=== PATIENT | female | born 1995 | race American Indian/Alaskan Native ===

== ENCOUNTER 2017-12-05 14:36 | Inpatient (IN) | payer BC, MEDICAID ==
[2017-12-05] MEDS ORDERED: ZOFRAN IV PRN (16:17)
[2017-12-05] MEDS ORDERED: ePHEDrine SULFATE IV PRN ×2 (16:17→18:47)
[2017-12-05] MEDS ORDERED: SUBLIMAZE IV PRN (16:17)
[2017-12-05] MEDS ORDERED: MINERAL OIL PO PRN (16:17)
[2017-12-05] MEDS ORDERED: XYLOCAINE 2% INFILTRATI ONE (16:17)
[2017-12-05] MEDS ORDERED: BRETHINE SUB-Q PRN (16:17)
[2017-12-05 16:56] LABS: Hematocrit 31.1 % (30.3-42.9); Mean Corpuscular HGB Conc 35 % (30-34); Mean Corpuscular Hemoglobin 26 pg (28-32); Mean Corpuscular Volume 72 fl (79-97); Platelet Count 237 K/mm3 (140-440); Red Cell Distribution Width 16.4 % (13.2-15.2)
[2017-12-05] MEDS ORDERED: PITOCin/NS 30 UNIT/500ML 30 UNITS/500 ML BAG IV SCH (17:00)
[2017-12-05] MEDS ORDERED: PITOCin/NS 20 UNIT/1000ML DRIP 20 UNITS/1,000 ML BAG IV SCH (17:00)
[2017-12-05] MEDS: LACTATED RINGERS 1,000 ML IV SCH ×2 (17:15→19:18)
--- NOTE | 2017-12-05 17:21 | History and Physical Report ---
History of Present Illness Date of examination: 12/05/17 (pt presented to Triage with c/o ctx) History of present illness: EDC Confirmation: 12/19/2017 Gestational Age: 12 weeks Past History : 2 Para: 1 Past Medical History: Reviewed history from 11/03/2015 and no changes required: Negative Past Medical History Past Surgical History: Reviewed history from 11/03/2015 and no changes required: negative Past Medical History Anesthesia Complications: negative Anemia: negative Autoimmune Disorder: negative Bleeding Disorder: negative Blood Transfusions: negative Breast Disease: negative Diabetes: negative Heart Disease: negative Hypertension: negative Hepatitis/Liver Disease: negative Kidney Disease/UTI: negative Neurologic/Epilepsy/Migraines: negative Phlebitis/Varicosities: negative Psychiatric: negative Pulmonary Disease/Asthma: negative Thyroid Disease: negative Hospitalizations: negative Surgery (Non-medicaid specialist): negative Abnormal PAP: negative AVELINO Exposure: negative Infertility: negative Uterine Anomaly: negative Uterine Surgery (not C/S): negative Other Gynecologic Problems: negative Family Hx: father - DM 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 of genital herpes: no Partner hx. of genital herpes: no Rash, Viral, or Febrile illness since last LMP? no Varicella/Chicken Pox Status: Immunized Genetic History Congenital Heart Defect: Mom: no Dad: no Meera Disease: Mom: no Dad: no Thalassemia Mom: no Dad: no Neural Tube Defect Mom: yes Dad: no Comments: uncle Down's Syndrome Mom: no Dad: no Buddy-Sachs Mom: no Dad: no Sickle Cell Disease/Trait Mom: no Dad: no Hemophilia Mom: no Dad: no Muscular Dystrophy Mom: no Dad: no Cystic Fibrosis Mom: no Dad: no [place] Chorea Mom: no Dad: no Mental Retardation Mom: no Dad: no Fragile X Mom: no Dad: no Other Genetic/Chromosomal Disorder Mom: no Dad: no Child w/other defect Mom: no Dad: no Enviromental Exposures Xray Exposure: no Medication, drug, or alcohol use since LMP: no Chemical/Other Exposure: no Exposure to Cat Liter: no Hx of Parvovirus (Fifth Disease): no Occupational Exposure to Children: none Active Medications (reviewed today): MICRONOR () one po qd VITAMINS () Current Allergies (reviewed today): No known allergies Laboratory Results Routine Urinalysis Leukocytes: negative Nitrite: negative Urobilinogen: negative Protein: negative Blood: negative Ketone: negative Bilirubin: negative Glucose: negative Urine HCG: positive Review of Systems General Denies fever, chills, sweats, anorexia, fatigue, weakness, malaise, weight loss and sleep disorder. Denies nausea, vomiting, headache, swelling of legs, abdominal pain, vaginal discharge, vaginal bleeding and contractions. Denies vaginal discharge, incontinence, dysuria, hematuria, urinary frequency, amenorrhea, menorrhagia, abnormal vaginal bleeding, pelvic pain, genital sores, decreased libido, painful periods, painful sex, urinary urgency, hot flashes, vaginal dryness, vaginal itching and vaginal odor. CV Denies chest pains, palpitations, syncope, dyspnea on exertion, orthopnea, PND and peripheral edema. Resp Denies cough, dyspnea at rest, excessive sputum, hemoptysis, wheezing and pleurisy. GI Denies nausea, vomiting, diarrhea, constipation, change in bowel habits, abdominal pain, melena, hematochezia, jaundice, gas/bloating, indigestion/ heartburn, dysphagia and odynophagia. Endo Denies cold intolerance, heat intolerance, polydipsia, polyphagia, polyuria and unusual weight change. Breast Denies left breast lump, right breast lump, nipple discharge, bloody discharge from nipple, breast pain, abnormal mammogram and breast enlargement. MS Denies back pain, joint pain, joint swelling, muscle cramps, muscle weakness, stiffness, arthritis, sciatica, restless legs, leg pain at night and leg pain with exertion. Derm Denies rash, itching, dryness and suspicious lesions. Neuro Denies paralysis, paresthesias, headache, seizures, tremors, vertigo, transient blindness, frequent falls, frequent headaches and difficulty walking. Psych Denies depression, anxiety, irritability and mood swings. Eyes Denies blurring, diplopia, irritation, discharge, vision loss, eye pain and photophobia. ENT Denies earache, ear discharge, tinnitus, decreased hearing, nasal congestion, nosebleeds, sore throat and hoarseness. Allergy Denies urticaria, allergic rash, hay fever and recurrent infections. Heme Denies abnormal bruising, bleeding and enlarged lymph nodes. 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 Vulva/Vagina: No lesions, normal BUS, normal rugae Cervix: No lesions; no cervical motion tenderness Uterus: normal size and position, midline, mobile Fundal Ht: 12 size: AGA FHT: 150s Adnexae: no masses or tenderness Rectovaginal: no masses or tenderness Past History - Obstetrical History Expected Date of Delivery: 12/19/17 Actual Gestation: 38 Week(s) 0 Day(s) : 2 Para: 1 Hx # Term Pregnancies: 1 Number of Living Children: 1 Medications and Allergies Allergies Allergy/AdvReac Type Severity Reaction Status Date / Time No Known Allergies Allergy Unverified 03/14/16 02:39 Home Medications Medication Instructions Recorded Confirmed Last Taken Type Lidocain2.5%/Prilocai2.5% [Emla] 5 gm TP PRN #1 tube 03/15/16 Unknown Rx Active Meds: Active Medications Ephedrine Sulfate (Ephedrine Sulfate) 10 mg IV Q2M PRN PRN Reason: Hypotension Fentanyl (Sublimaze) 100 mcg IV Q2H PRN PRN Reason: Labor Pain Lactated Ringer's (Lactated Ringers) 1,000 mls @ 125 mls/hr IV DIRECT KARINA Oxytocin/Sodium Chloride (Pitocin/Ns 20 Unit/1000ml Drip) 20 units in 1,000 mls @ 125 mls/hr IV DIRECT KARINA Oxytocin/Sodium Chloride (Pitocin/Ns 30 Unit/500ml) 30 units in 500 mls @ 4 mls /hr IV Q30MIN KARINA; Protocol Mineral Oil (Mineral Oil) 30 ml PO QHS PRN PRN Reason: Constipation Ondansetron HCl (Zofran) 4 mg IV Q8H PRN PRN Reason: Nausea And Vomiting Terbutaline Sulfate (Brethine) 0.25 mg SUB-Q ONCE PRN PRN Reason: Hyperstimulation/Hypertonicity - Vital Signs Vital signs: Vital Signs Pulse BP 82 113/74 12/05/17 15:22 12/05/17 15:22 Temp Pulse Resp BP Pulse Ox 98.5 F 82 18 113/74 12/05/17 15:38 12/05/17 15:22 12/05/17 15:38 12/05/17 15:22 - Physical Exam Breasts: Positive: deferred Cardiovascular: Regular rate, Normal S1, Normal S2 Lungs: Positive: Clear to auscultation, Normal air movement Abdomen: Positive: normal appearance, soft, normal bowel sounds. Negative: distention, tenderness Genitourinary (Female): Positive: normal external genitalia, normal perenium Vulva: both: normal Vagina: Positive: normal moisture. Negative: discharge Cervix: Negative: lesion, discharge Uterus: Positive: normal size, normal contour Adnexa: both: normal Anus/Rectum: Positive: normal perianal skin, heme negative. Negative: rectal mass, hemorrhoids Extremities: Positive: normal Deep Tendon Reflex Grade: Normal +2 - Obstetrical FHR: category 1 Uterine Contraction Monitor Mode: External Cervical Dilatation: 4 Cervical Effacement Percentage: 70 station: -2 Uterine Contraction Pattern: Regular Uterine Tone Measurement Phase: Resting Uterine Contraction Intensity: Mild Results Result Diagrams: 12/05/17 16:40 Abnormal lab results 12/05/17 Range/Units 16:40 MCV 72 L (79-97) fl MCH 26 L (28-32) pg MCHC 35 H (30-34) % RDW 16.4 H (13.2-15.2) % All other labs normal. HBsAg Screen Negative Negative *1 Rubella Antibodies, IgG 1.39 index Immune >0.99 *2 Non-immune <0.90 Equivocal 0.90 - 0.99 Immune >0.99 ABO Grouping A *3 Rh Factor Positive *4 Please note: Prior records for this patient's ABO / Rh type are not available for additional verification. Antibody Screen Negative Negative *5 RPR Non Reactive Non Reactive *6 WBC 7.1 x10E3/uL 3.4-10.8 *7 RBC 4.11 x10E6/uL 3.77-5.28 *8 Hemoglobin 11.2 g/dL 11.1-15.9 *9 Hematocrit [L] 32.6 % 34.0-46.6 *10 MCV 79 fL 79-97 *11 MCH 27.3 pg 26.6-33.0 *12 MCHC 34.4 g/dL 31.5-35.7 *13 RDW [H] 15.6 % 12.3-15.4 *14 Platelets 323 x10E3/uL 150-379 *15 Neutrophils 69 % Not Estab. *16 Lymphs 23 % Not Estab. *17 Monocytes 6 % Not Estab. *18 Eos 2 % Not Estab. *19 Basos 0 % Not Estab. *20 ! Immature Cells <No Reported Value> *21 Neutrophils (Absolute) 4.9 x10E3/uL 1.4-7.0 *22 Lymphs (Absolute) 1.6 x10E3/uL 0.7-3.1 *23 Monocytes(Absolute) 0.4 x10E3/uL 0.1-0.9 *24 Eos (Absolute) 0.2 x10E3/uL 0.0-0.4 *25 Baso (Absolute) 0.0 x10E3/uL 0.0-0.2 *26 ! Immature Granulocytes 0 % Not Estab. *27 ! Immature Grans (Abs) 0.0 x10E3/uL 0.0-0.1 *28 ! NRBC <No Reported Value> *29 Hematology Comments: <No Reported Value> *30 Tests: (2) HB Solu + Rflx [facility] ([id number]) Hemoglobin (Hgb) Solubility Negative Negative *31 Tests: (3) Panel [id number] ([id number]) HIV Screen 4th Generation wRfx Non Reactive Non Reactive *32 Tests: (4) HCV Ab w/Rflx to Verification ([id number]) ! HCV Ab <0.1 s/co ratio 0.0-0.9 *33 Tests: (5) Comment: ([id number]) ! Comment: [facility] *34 Non reactive HCV antibody screen is consistent with no HCV infection, unless recent infection is suspected or other evidence exists to indicate HCV infection. Tests: (6) Urine Culture, Routine ([id number]) Urine Culture, Routine Final report *35 Tests: (7) Result ([id number]) ! Result 1 No growth *36 Assessment and Plan 22yo @ 38 weeks active labor GBS negative Orders in EMR
[2017-12-05] MEDS ORDERED: NARCAN 2 MG/2 ML IV PRN (18:47)
[2017-12-05] MEDS ORDERED: fentaNYL-BUPIV 2 MCG/ML-0.125% 200 MCG/100 ML BAG EPIDURAL SCH (20:00)
--- NOTE | 2017-12-05 20:06 | Progress Note ---
Assessment and Plan Copious amt of amniotic fluid with ROM clear SVE 6,100,0 Pit @ 12mu Freq position chges Re-eval as needed. Subjective - Subjective Date of service: 12/05/17 (comfortable with epidural ) Interval history: EDC Confirmation: 12/19/2017 Gestational Age: 12 weeks Past History : 2 Para: 1 Past Medical History: Reviewed history from 11/03/2015 and no changes required: Negative Past Medical History Past Surgical History: Reviewed history from 11/03/2015 and no changes required: negative Past Medical History Anesthesia Complications: negative Anemia: negative Autoimmune Disorder: negative Bleeding Disorder: negative Blood Transfusions: negative Breast Disease: negative Diabetes: negative Heart Disease: negative Hypertension: negative Hepatitis/Liver Disease: negative Kidney Disease/UTI: negative Neurologic/Epilepsy/Migraines: negative Phlebitis/Varicosities: negative Psychiatric: negative Pulmonary Disease/Asthma: negative Thyroid Disease: negative Hospitalizations: negative 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 of genital herpes: no Partner hx. of genital herpes: no Rash, Viral, or Febrile illness since last LMP? no Varicella/Chicken Pox Status: Immunized Genetic History Congenital Heart Defect: Mom: no Dad: no Meera Disease: Mom: no Dad: no Thalassemia Mom: no Dad: no Neural Tube Defect Mom: yes Dad: no Comments: uncle Down's Syndrome Mom: no Dad: no Buddy-Sachs Mom: no Dad: no Sickle Cell Disease/Trait Mom: no Dad: no Hemophilia Mom: no Dad: no Muscular Dystrophy Mom: no Dad: no Cystic Fibrosis Mom: no Dad: no [place] Chorea Mom: no Dad: no Mental Retardation Mom: no Dad: no Fragile X Mom: no Dad: no Other Genetic/Chromosomal Disorder Mom: no Dad: no Child w/other defect Mom: no Dad: no Enviromental Exposures Xray Exposure: no Medication, drug, or alcohol use since LMP: no Chemical/Other Exposure: no Exposure to Cat Liter: no Hx of Parvovirus (Fifth Disease): no Occupational Exposure to Children: none Active Medications (reviewed today): MICRONOR () one po qd VITAMINS () Current Allergies (reviewed today): No known allergies Laboratory Results Routine Urinalysis Leukocytes: negative Nitrite: negative Urobilinogen: negative Protein: negative Blood: negative Ketone: negative Bilirubin: negative Glucose: negative Urine HCG: positive Review of Systems General Denies fever, chills, sweats, anorexia, fatigue, weakness, malaise, weight loss and sleep disorder. Denies nausea, vomiting, headache, swelling of legs, abdominal pain, vaginal discharge, vaginal bleeding and contractions. Denies vaginal discharge, incontinence, dysuria, hematuria, urinary frequency, amenorrhea, menorrhagia, abnormal vaginal bleeding, pelvic pain, genital sores, decreased libido, painful periods, painful sex, urinary urgency, hot flashes, vaginal dryness, vaginal itching and vaginal odor. CV Denies chest pains, palpitations, syncope, dyspnea on exertion, orthopnea, PND and peripheral edema. Resp Denies cough, dyspnea at rest, excessive sputum, hemoptysis, wheezing and pleurisy. GI Denies nausea, vomiting, diarrhea, constipation, change in bowel habits, abdominal pain, melena, hematochezia, jaundice, gas/bloating, indigestion/ heartburn, dysphagia and odynophagia. Endo Denies cold intolerance, heat intolerance, polydipsia, polyphagia, polyuria and unusual weight change. Breast Denies left breast lump, right breast lump, nipple discharge, bloody discharge from nipple, breast pain, abnormal mammogram and breast enlargement. MS Denies back pain, joint pain, joint swelling, muscle cramps, muscle weakness, stiffness, arthritis, sciatica, restless legs, leg pain at night and leg pain with exertion. Derm Denies rash, itching, dryness and suspicious lesions. Neuro Denies paralysis, paresthesias, headache, seizures, tremors, vertigo, transient blindness, frequent falls, frequent headaches and difficulty walking. Psych Denies depression, anxiety, irritability and mood swings. Eyes Denies blurring, diplopia, irritation, discharge, vision loss, eye pain and photophobia. ENT Denies earache, ear discharge, tinnitus, decreased hearing, nasal congestion, nosebleeds, sore throat and hoarseness. Allergy Denies urticaria, allergic rash, hay fever and recurrent infections. Heme Denies abnormal bruising, bleeding and enlarged lymph nodes. 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/Vagina: No lesions, normal BUS, normal rugae Cervix: No lesions; no cervical motion tenderness Uterus: normal size and position, midline, mobile Fundal Ht: 12 size: AGA FHT: 150s Adnexae: no masses or tenderness Rectovaginal: no masses or tenderness Patient reports: movement normal Objective - Vital Signs Vital Signs: Vital Signs - 12hr 12/05/17 12/05/17 12/05/17 15:22 15:38 17:21 Temperature 98.5 F 98.1 F Pulse Rate 82 85 Respiratory 18 16 Rate Blood Pressure 113/74 Blood Pressure 113/75 [Right] O2 Sat by Pulse 100 Oximetry 12/05/17 12/05/17 12/05/17 17:38 17:40 17:45 Temperature Pulse Rate 81 80 82 Respiratory Rate Blood Pressure 113/75 Blood Pressure [Right] O2 Sat by Pulse 100 100 Oximetry 12/05/17 12/05/17 12/05/17 17:50 17:55 17:57 Temperature Pulse Rate 82 85 84 Respiratory Rate Blood Pressure Blood Pressure [Right] O2 Sat by Pulse 100 100 92 Oximetry 12/05/17 12/05/17 12/05/17 18:02 18:07 18:12 Temperature Pulse Rate 103 H 90 88 Respiratory Rate Blood Pressure Blood Pressure [Right] O2 Sat by Pulse 88 100 100 Oximetry 12/05/17 12/05/17 12/05/17 18:17 18:22 18:27 Temperature Pulse Rate 79 79 90 Respiratory Rate Blood Pressure Blood Pressure [Right] O2 Sat by Pulse 100 100 95 Oximetry 12/05/17 12/05/17 12/05/17 18:32 18:37 18:45 Temperature Pulse Rate 75 79 25 L Respiratory Rate Blood Pressure Blood Pressure [Right] O2 Sat by Pulse 100 100 87 Oximetry 12/05/17 12/05/17 12/05/17 18:46 18:51 18:56 Temperature Pulse Rate 47 L 78 83 Respiratory Rate Blood Pressure Blood Pressure [Right] O2 Sat by Pulse 62 L 100 100 Oximetry 12/05/17 12/05/17 12/05/17 19:01 19:06 19:11 Temperature Pulse Rate 86 84 103 H Respiratory Rate Blood Pressure Blood Pressure [Right] O2 Sat by Pulse 100 100 100 Oximetry 12/05/17 12/05/17 12/05/17 19:17 19:20 19:22 Temperature Pulse Rate 103 H 105 H 97 H Respiratory Rate Blood Pressure 119/73 110/76 Blood Pressure [Right] O2 Sat by Pulse 100 100 Oximetry 12/05/17 12/05/17 12/05/17 19:24 19:28 19:30 Temperature Pulse Rate 98 H 96 H 92 H Respiratory Rate Blood Pressure 112/74 108/61 106/54 Blood Pressure [Right] O2 Sat by Pulse Oximetry 12/05/17 12/05/17 12/05/17 19:32 19:34 19:36 Temperature Pulse Rate 109 H 101 H 85 Respiratory Rate Blood Pressure 112/65 110/68 108/60 Blood Pressure [Right] O2 Sat by Pulse 100 Oximetry 12/05/17 12/05/17 12/05/17 19:37 19:38 19:40 Temperature Pulse Rate 82 83 64 Respiratory Rate Blood Pressure 110/64 107/64 Blood Pressure [Right] O2 Sat by Pulse 99 Oximetry 12/05/17 12/05/17 12/05/17 19:42 19:44 19:46 Temperature Pulse Rate 82 86 88 Respiratory Rate Blood Pressure 105/65 114/72 114/70 Blood Pressure [Right] O2 Sat by Pulse 100 Oximetry 12/05/17 12/05/17 12/05/17 19:47 19:48 19:50 Temperature 98.4 F Pulse Rate 94 H 98 H 87 Respiratory 20 Rate Blood Pressure 112/71 112/73 Blood Pressure [Right] O2 Sat by Pulse 100 Oximetry 12/05/17 12/05/17 12/05/17 19:52 19:54 19:57 Temperature Pulse Rate 81 78 83 Respiratory Rate Blood Pressure 114/67 124/76 Blood Pressure [Right] O2 Sat by Pulse 100 100 Oximetry - Exam Breasts: deferred Cardiovascular: Regular rate Lungs: Normal air movement Abdomen: Present: normal appearance, soft. Absent: distention, tenderness Uterus: Present: normal FHR: auscultation normal, category 1 Uterine Contraction Monitor Mode: Internal Cervical Dilatation: 6 (SROM polyhydramnios) Cervical Effacement Percentage: 100 (ISE/IUPC placed) station: 0 Uterine Contraction Pattern: Regular Uterine Contraction Intensity: Moderate Extremities: normal Deep Tendon Reflex Grade: Normal +2 - Labs Labs: Abnormal Labs 12/05/17 16:40 MCV 72 L MCH 26 L MCHC 35 H RDW 16.4 H Laboratory Results - last 24 hr 12/05/17 12/05/17 16:38 16:40 WBC 10.6 RBC 4.30 Hgb 11.0 Hct 31.1 MCV 72 L MCH 26 L MCHC 35 H RDW 16.4 H Plt Count 237 Blood Type A POSITIVE Antibody Screen Negative
--- NOTE | 2017-12-05 21:08 | Progress Note ---
Assessment and Plan SVE 8,100,0 Pit @ 12mu Anticipate delivery Subjective - Subjective Date of service: 12/05/17 (resting No c/o voiced) Interval history: EDC Confirmation: 12/19/2017 Gestational Age: 12 weeks Past History : 2 Para: 1 Past Medical History: Reviewed history from 11/03/2015 and no changes required: Negative Past Medical History Past Surgical History: Reviewed history from 11/03/2015 and no changes required: negative Past Medical History Anesthesia Complications: negative Anemia: negative Autoimmune Disorder: negative Bleeding Disorder: negative Blood Transfusions: negative Breast Disease: negative Diabetes: negative Heart Disease: negative Hypertension: negative Hepatitis/Liver Disease: negative Kidney Disease/UTI: negative Neurologic/Epilepsy/Migraines: negative Phlebitis/Varicosities: negative Psychiatric: negative Pulmonary Disease/Asthma: negative Thyroid Disease: negative Hospitalizations: negative 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 of genital herpes: no Partner hx. of genital herpes: no Rash, Viral, or Febrile illness since last LMP? no Varicella/Chicken Pox Status: Immunized Genetic History Congenital Heart Defect: Mom: no Dad: no Meera Disease: Mom: no Dad: no Thalassemia Mom: no Dad: no Neural Tube Defect Mom: yes Dad: no Comments: uncle Down's Syndrome Mom: no Dad: no Buddy-Sachs Mom: no Dad: no Sickle Cell Disease/Trait Mom: no Dad: no Hemophilia Mom: no Dad: no Muscular Dystrophy Mom: no Dad: no Cystic Fibrosis Mom: no Dad: no Gail Chorea Mom: no Dad: no Mental Retardation Mom: no Dad: no Fragile X Mom: no Dad: no Other Genetic/Chromosomal Disorder Mom: no Dad: no Child w/other defect Mom: no Dad: no Enviromental Exposures Xray Exposure: no Medication, drug, or alcohol use since LMP: no Chemical/Other Exposure: no Exposure to Cat Liter: no Hx of Parvovirus (Fifth Disease): no Occupational Exposure to Children: none Active Medications (reviewed today): MICRONOR () one po qd VITAMINS () Current Allergies (reviewed today): No known allergies Laboratory Results Routine Urinalysis Leukocytes: negative Nitrite: negative Urobilinogen: negative Protein: negative Blood: negative Ketone: negative Bilirubin: negative Glucose: negative Urine HCG: positive Review of Systems General Denies fever, chills, sweats, anorexia, fatigue, weakness, malaise, weight loss and sleep disorder. Denies nausea, vomiting, headache, swelling of legs, abdominal pain, vaginal discharge, vaginal bleeding and contractions. Denies vaginal discharge, incontinence, dysuria, hematuria, urinary frequency, amenorrhea, menorrhagia, abnormal vaginal bleeding, pelvic pain, genital sores, decreased libido, painful periods, painful sex, urinary urgency, hot flashes, vaginal dryness, vaginal itching and vaginal odor. CV Denies chest pains, palpitations, syncope, dyspnea on exertion, orthopnea, PND and peripheral edema. Resp Denies cough, dyspnea at rest, excessive sputum, hemoptysis, wheezing and pleurisy. GI Denies nausea, vomiting, diarrhea, constipation, change in bowel habits, abdominal pain, melena, hematochezia, jaundice, gas/bloating, indigestion/ heartburn, dysphagia and odynophagia. Endo Denies cold intolerance, heat intolerance, polydipsia, polyphagia, polyuria and unusual weight change. Breast Denies left breast lump, right breast lump, nipple discharge, bloody discharge from nipple, breast pain, abnormal mammogram and breast enlargement. MS Denies back pain, joint pain, joint swelling, muscle cramps, muscle weakness, stiffness, arthritis, sciatica, restless legs, leg pain at night and leg pain with exertion. Derm Denies rash, itching, dryness and suspicious lesions. Neuro Denies paralysis, paresthesias, headache, seizures, tremors, vertigo, transient blindness, frequent falls, frequent headaches and difficulty walking. Psych Denies depression, anxiety, irritability and mood swings. Eyes Denies blurring, diplopia, irritation, discharge, vision loss, eye pain and photophobia. ENT Denies earache, ear discharge, tinnitus, decreased hearing, nasal congestion, nosebleeds, sore throat and hoarseness. Allergy Denies urticaria, allergic rash, hay fever and recurrent infections. Heme Denies abnormal bruising, bleeding and enlarged lymph nodes. 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 Exams Vulva/Vagina: No lesions, normal BUS, normal rugae Cervix: No lesions; no cervical motion tenderness Uterus: normal size and position, midline, mobile Fundal Ht: 12 size: AGA FHT: 150s Adnexae: no masses or tenderness Rectovaginal: no masses or tenderness Patient reports: movement normal Objective - Vital Signs Vital Signs: Vital Signs - 12hr 12/05/17 12/05/17 12/05/17 15:22 15:38 17:21 Temperature 98.5 F 98.1 F Pulse Rate 82 85 Respiratory 18 16 Rate Blood Pressure 113/74 Blood Pressure 113/75 [Right] O2 Sat by Pulse 100 Oximetry 12/05/17 12/05/17 12/05/17 17:38 17:40 17:45 Temperature Pulse Rate 81 80 82 Respiratory Rate Blood Pressure 113/75 Blood Pressure [Right] O2 Sat by Pulse 100 100 Oximetry 12/05/17 12/05/17 12/05/17 17:50 17:55 17:57 Temperature Pulse Rate 82 85 84 Respiratory Rate Blood Pressure Blood Pressure [Right] O2 Sat by Pulse 100 100 92 Oximetry 12/05/17 12/05/17 12/05/17 18:02 18:07 18:12 Temperature Pulse Rate 103 H 90 88 Respiratory Rate Blood Pressure Blood Pressure [Right] O2 Sat by Pulse 88 100 100 Oximetry 12/05/17 12/05/17 12/05/17 18:17 18:22 18:27 Temperature Pulse Rate 79 79 90 Respiratory Rate Blood Pressure Blood Pressure [Right] O2 Sat by Pulse 100 100 95 Oximetry 12/05/17 12/05/17 12/05/17 18:32 18:37 18:45 Temperature Pulse Rate 75 79 25 L Respiratory Rate Blood Pressure Blood Pressure [Right] O2 Sat by Pulse 100 100 87 Oximetry 12/05/17 12/05/17 12/05/17 18:46 18:51 18:56 Temperature Pulse Rate 47 L 78 83 Respiratory Rate Blood Pressure Blood Pressure [Right] O2 Sat by Pulse 62 L 100 100 Oximetry 12/05/17 12/05/17 12/05/17 19:01 19:06 19:11 Temperature Pulse Rate 86 84 103 H Respiratory Rate Blood Pressure Blood Pressure [Right] O2 Sat by Pulse 100 100 100 Oximetry 12/05/17 12/05/17 12/05/17 19:17 19:20 19:22 Temperature Pulse Rate 103 H 105 H 97 H Respiratory Rate Blood Pressure 119/73 110/76 Blood Pressure [Right] O2 Sat by Pulse 100 100 Oximetry 12/05/17 12/05/17 12/05/17 19:24 19:28 19:30 Temperature Pulse Rate 98 H 96 H 92 H Respiratory Rate Blood Pressure 112/74 108/61 106/54 Blood Pressure [Right] O2 Sat by Pulse Oximetry 12/05/17 12/05/17 12/05/17 19:32 19:34 19:36 Temperature Pulse Rate 109 H 101 H 85 Respiratory Rate Blood Pressure 112/65 110/68 108/60 Blood Pressure [Right] O2 Sat by Pulse 100 Oximetry 12/05/17 12/05/17 12/05/17 19:37 19:38 19:40 Temperature Pulse Rate 82 83 64 Respiratory Rate Blood Pressure 110/64 107/64 Blood Pressure [Right] O2 Sat by Pulse 99 Oximetry 12/05/17 12/05/17 12/05/17 19:42 19:44 19:46 Temperature Pulse Rate 82 86 88 Respiratory Rate Blood Pressure 105/65 114/72 114/70 Blood Pressure [Right] O2 Sat by Pulse 100 Oximetry 12/05/17 12/05/17 12/05/17 19:47 19:48 19:50 Temperature 98.4 F Pulse Rate 94 H 98 H 87 Respiratory 20 Rate Blood Pressure 112/71 112/73 Blood Pressure [Right] O2 Sat by Pulse 100 Oximetry 12/05/17 12/05/17 12/05/17 19:52 19:54 19:57 Temperature Pulse Rate 81 78 83 Respiratory Rate Blood Pressure 114/67 124/76 Blood Pressure [Right] O2 Sat by Pulse 100 100 Oximetry 12/05/17 12/05/1718 20:02 20:07 20:09 Temperature Pulse Rate 69 96 H 92 H Respiratory Rate Blood Pressure Blood Pressure [Right] O2 Sat by Pulse 100 100 90 Oximetry 12/05/17 12/05/17 12/05/17 20:11 20:12 20:17 Temperature Pulse Rate 86 93 H 90 Respiratory Rate Blood Pressure 107/65 Blood Pressure [Right] O2 Sat by Pulse 100 100 Oximetry 12/05/17 12/05/17 12/05/17 20:22 20:27 20:32 Temperature Pulse Rate 79 97 H 95 H Respiratory Rate Blood Pressure Blood Pressure [Right] O2 Sat by Pulse 99 87 100 Oximetry 12/05/17 12/05/17 12/05/17 20:37 20:40 20:41 Temperature Pulse Rate 78 84 96 H Respiratory Rate Blood Pressure 151/68 Blood Pressure [Right] O2 Sat by Pulse 100 82 L Oximetry 12/05/17 12/05/17 12/05/17 20:42 20:47 20:52 Temperature Pulse Rate 92 H 85 90 Respiratory Rate Blood Pressure Blood Pressure [Right] O2 Sat by Pulse 100 100 100 Oximetry 12/05/17 12/05/17 12/05/17 20:56 20:57 21:02 Temperature Pulse Rate 83 84 81 Respiratory Rate Blood Pressure 129/58 Blood Pressure [Right] O2 Sat by Pulse 99 99 Oximetry 12/05/17 12/05/17 21:07 21:10 Temperature Pulse Rate 77 91 H Respiratory Rate Blood Pressure 114/62 Blood Pressure [Right] O2 Sat by Pulse 99 Oximetry - Exam Breasts: deferred Cardiovascular: Regular rate Lungs: Normal air movement Abdomen: Present: normal appearance, soft. Absent: distention, tenderness Uterus: Present: normal FHR: auscultation normal, category 1 Uterine Contraction Monitor Mode: Internal Cervical Dilatation: 8 Cervical Effacement Percentage: 100 station: 0 Uterine Contraction Pattern: Regular Uterine Tone Measurement Phase: Resting Uterine Contraction Intensity: Moderate Extremities: normal Deep Tendon Reflex Grade: Normal +2 - Labs Labs: Abnormal Labs 12/05/17 16:40 MCV 72 L MCH 26 L MCHC 35 H RDW 16.4 H Laboratory Results - last 24 hr 12/05/17 12/05/17 16:38 16:40 WBC 10.6 RBC 4.30 Hgb 11.0 Hct 31.1 MCV 72 L MCH 26 L MCHC 35 H RDW 16.4 H Plt Count 237 Blood Type A POSITIVE Antibody Screen Negative
[2017-12-05] MEDS ORDERED: METHERGINE IM ONE ×2 (22:59→23:09)
[2017-12-05] MEDS ORDERED: CYTOTEC ONE (23:02)
[2017-12-05] MEDS ORDERED: CYTOTEC PR ONE (23:09)
[2017-12-05] MEDS ORDERED: LANSINOH TP PRN (23:11)
[2017-12-05] MEDS ORDERED: MILK OF MAGNESIA PO PRN (23:11)
[2017-12-05] MEDS ORDERED: TYLENOL PO PRN (23:11)
[2017-12-05] MEDS ORDERED: PHENERGAN PR PRN (23:11)
[2017-12-05] MEDS ORDERED: TUCKS PAD TP PRN (23:11)
[2017-12-05] MEDS ORDERED: BENADRYL PO PRN (23:11)
[2017-12-05] MEDS ORDERED: PHENERGAN PO PRN (23:11)
[2017-12-05] MEDS ORDERED: TORADOL IV PRN (23:11)
[2017-12-05] MEDS ORDERED: DULCOLAX PR PRN (23:11)
--- NOTE | 2017-12-05 23:21 | Procedure Note ---
OB Delivery Note - Delivery Date of Delivery: 12/05/17 Data Entry Supervisor: SABI VAZQUEZ Estimated blood loss: 500cc - Vaginal Delivery presentation: vertex Delivery position: OA Intrapartum events: none Delivery induction: none Delivery augmentation: rupture of membranes Delivery monitor: internal FHT, internal uterine Route of delivery: Delivery placenta: spontaneous Delivery cord: 3 umbilical vessels Episiotomy: none Delivery laceration: none Anesthesia: epidural Delivery comments: live born female over intact perineum Placed skin to skin on mom's abdomen Placenta and membrane del complete and intact, 3 vessel cord. Pit IVFs. Uterus boggy, clots expressed, Methergine IM given, Cytotec 800mcg WA placed. EBL 500 8/8, Wgt 6-12 Mom and baby remain LDR stable. FF @umb Lochia small. - Infant A at 1 minute: 8 at 5 minutes: 8 Gender: Female (wgt 6-12)
[2017-12-05] MEDS ORDERED: SODIUM CHLORIDE FLUSH SYRINGE 10 ML IV PRN (23:45)
[2017-12-06] MEDS: MOTRIN PO SCH ×3 (01:37→16:05)
--- NOTE | 2017-12-06 08:43 | Progress Note ---
Assessment and Plan Patient doing well <12h post delivery, . Lochia scant, VSSAF with the exception of a temp of 100.7 @ 0120. no s/s anemia, H&H ordered for 1100. Continue pathway and continue to observe for s/s infection and additional fever. - Patient Problems (1) Spontaneous vaginal delivery Current Visit: Yes Status: Acute Subjective - Subjective Date of service: 12/06/17 Principal diagnosis: day #1 s/p Patient reports: appetite normal, voiding normally, pain well controlled, ambulating normally, no dizzy ambulation, no nauseated : doing well, nursing well Objective - Vital Signs Latest vital signs: Vital Signs Temp Pulse Resp BP BP Pulse Ox 12/06/17 04:35 98.1 F 92 H 20 112/66 12/06/17 01:20 100.7 F H 79 18 124/80 12/06/17 00:21 72 124/75 12/06/17 00:06 75 139/71 12/05/17 23:51 79 129/74 12/05/17 23:35 77 125/83 12/05/17 23:20 81 117/73 12/05/17 23:10 93 H 109/71 12/05/17 23:01 97 H 112/68 12/05/17 22:47 95 H 100 12/05/17 22:42 87 98 12/05/17 22:40 94 H 121/75 12/05/17 22:37 82 98 12/05/17 22:32 80 98 12/05/17 22:27 97 H 99 12/05/17 22:26 87 121/77 12/05/17 22:22 94 H 98 12/05/17 22:17 84 98 12/05/17 22:12 86 99 12/05/17 22:10 92 H 127/76 12/05/17 22:07 85 98 12/05/17 22:02 86 99 12/05/17 21:57 87 98 12/05/17 21:55 85 104/62 12/05/17 21:52 86 99 12/05/17 21:47 76 98 12/05/17 21:42 92 H 100 12/05/17 21:40 88 121/67 12/05/17 21:37 85 99 03/29/18 21:32 80 99 18 21:27 85 99 18 21:26 81 120/65 18 21:22 84 98 18 21:17 77 98 18 21:12 85 99 18 21:10 91 H 114/62 18 21:07 77 99 18 21:02 81 99 18 20:57 84 99 18 20:56 83 129/58 12/05/17 20:52 90 100 18 20:47 85 100 12/05/17 20:42 92 H 100 12/05/17 20:41 96 H 151/68 12/05/17 20:40 84 82 L 12/05/17 20:37 78 100 12/05/17 20:32 95 H 100 12/05/17 20:27 97 H 87 12/05/17 20:22 79 99 12/05/17 20:17 90 100 12/05/17 20:12 93 H 100 12/05/17 20:11 86 107/65 12/05/17 20:09 92 H 90 12/05/17 20:07 96 H 100 12/05/17 20:02 69 100 12/05/17 19:57 83 100 12/05/17 19:54 78 124/76 12/05/17 19:52 81 114/67 100 18 19:50 87 112/73 12/05/17 19:48 98 H 112/71 12/05/17 19:47 98.4 F 94 H 20 100 12/05/17 19:46 88 114/70 18 19:44 86 114/72 18 19:42 82 105/65 100 18 19:40 64 107/64 18 19:38 83 110/64 18 19:37 82 99 18 19:36 85 108/60 18 19:34 101 H 110/68 18 19:32 109 H 112/65 100 18 19:30 92 H 106/54 18 19:28 96 H 108/61 18 19:24 98 H 112/74 03/29/18 19:22 97 H 110/76 100 12/05/17 19:20 105 H 119/73 12/05/17 19:17 103 H 100 12/05/17 19:11 103 H 100 12/05/17 19:06 84 100 12/05/17 19:01 86 100 12/05/17 18:56 83 100 12/05/17 18:51 78 100 12/05/17 18:46 47 L 62 L 12/05/17 18:45 25 L 87 12/05/17 18:37 79 100 12/05/17 18:32 75 100 12/05/17 18:27 90 95 12/05/17 18:22 79 100 12/05/17 18:17 79 100 12/05/17 18:12 88 100 12/05/17 18:07 90 100 12/05/17 18:02 103 H 88 12/05/17 17:57 84 92 12/05/17 17:55 85 100 12/05/17 17:50 82 100 12/05/17 17:45 82 100 12/05/17 17:40 80 100 12/05/17 17:38 81 113/75 12/05/17 17:21 98.1 F 85 16 113/75 100 12/05/17 15:38 98.5 F 18 12/05/17 15:22 82 113/74 Intake and Output 12/05/17 12/06/17 12/06/17 23:59 07:59 15:59 Intake Total 1035.933 720 Output Total 400 800 Balance 635.933 -80 Intake: IV 1035.933 Lactated Ringers 1,000 ml 1000 @ 125 mls/hr IV DIRECT KARINA Rx#:[id number] PITOCin/NS 30 UNIT/500ML 35.933 30 units In 500 ml @ 4 mls/hr IV Q30MIN KARINA Rx#: [id number] Oral 720 Output: Urine 400 800 Indwelling Catheter 400 200 Void 600 Other: Total, Intake Amount 240 Total, Output Amount 400 600 # Voids Void 1 Estimated Blood Loss 500 - Exam Breasts: Present: normal, Cardiovascular: Present: Regular rate Lungs: Present: Clear to auscultation, Normal air movement Abdomen: Present: normal appearance, soft Vulva: both: normal Uterus: Present: normal, firm, fundal height at umbilicus Extremities: Present: normal - Labs Labs: Abnormal lab results 12/05/17 Range/Units 16:40 MCV 72 L (79-97) fl MCH 26 L (28-32) pg MCHC 35 H (30-34) % RDW 16.4 H (13.2-15.2) %
[2017-12-06 11:30] LABS: Hematocrit 28.6 % (30.3-42.9); Hemoglobin 9.9 gm/dl (10.1-14.3)
[2017-12-06] MEDS ORDERED: M-M-R II VACCINE SUB-Q ONE (23:11)
[2017-12-07] MEDS: MOTRIN PO SCH ×3 (01:29→15:05)
[2017-12-07] MEDS ORDERED: BOOSTRIX IM ONE (06:00)
[2017-12-07 09:51] VITALS: BP 98/64
--- NOTE | 2017-12-07 11:28 | Discharge Summary ---
Providers - Providers Date of Admission: 12/05/17 16:59 Date of discharge: 12/07/17 Attending physician: ALLYSSA BLUNT Primary care physician: ABRAHAM PACHECO Hospitalization Reason for admission: active labor Delivery: Episiotomy: none Laceration: none Other procedures: none complications: none Discharge diagnosis: IUP at term delivered baby: female Hospital course: Patient was admitted underwent a normal spontaneous vaginal delivery. Her course was benign. She was afebrile throughout her stay. Her day 1 hematocrit was 28.6%. Patient is breast-feeding and desires Depo-Provera for control. Condition at discharge: Good Disposition: DC-30 STILL A PATIENT Plan - Provider Discharge Summary Activity: no sex for 6 weeks, no heavy lifting 4 weeks, no strenuous exercise Diet: routine Instructions: routine Additional instructions: [] Smoking cessation referral if applicable(refer to patient education folder for contact #) [] Refer to [facility] Booklet Call your doctor immediately for: * Fever > 100.5 * Heavy vaginal bleeding ( >1 pad per hour) * Severe persistent headache * Shortness of breath * Reddened, hot, painful area to leg or breast * Drainage or odor from incision. - Follow up plan Follow up: ABRAHAM PACHECO MD [Primary Care Provider] - 7 Days
== END 2017-12-07 16:10 | disposition home or self-care (01) | DRG 775 ==
LOC: TRG 14:36 → LD 16:59 → OB 12-06 01:09
PROVIDERS: ADMIT Obstetrics & Gynecology; ATTEND Obstetrics & Gynecology
PROC: 10E0XZZ Delivery of Products of Conception, External Approach (ICD-10-PCS; principal; 2017-12-05)
PROC: 3E0R3BZ Introduction of Anesthetic Agent into Spinal Canal, Percutaneous Approach (ICD-10-PCS; 2017-12-05)
PROC: 00HU33Z Insertion of Infusion Device into Spinal Canal, Percutaneous Approach (ICD-10-PCS; 2017-12-05)
PROC: 10907ZC Drainage of Amniotic Fluid, Therapeutic from Products of Conception, Via Natural or Artificial Opening (ICD-10-PCS; 2017-12-05)
PROC: 3E0234Z Introduction of Serum, Toxoid and Vaccine into Muscle, Percutaneous Approach (ICD-10-PCS; 2017-12-06)
DX: O80 Encounter for full-term uncomplicated delivery (principal); Z3A.38 38 weeks gestation of pregnancy; Z37.0 Single live birth; Z83.3 Family history of diabetes mellitus; Z23 Encounter for immunization
CPT/HCPCS: 36415; 59025; 85014; 85018; 85027; 86592; 86850; 86900; 86901; 99211; G0463; J2210; J2590; J7120

== ENCOUNTER 2021-06-09 13:30 | Outpatient (CLI) | payer BC, MEDICAID ==
[2021-06-09] MEDS ORDERED: LACTATED RINGERS 500 ML IV ONE (15:01)
[2021-06-09 15:24] LABS: Bacteria,Urine 1+ /HPF (Negative); Bilirubin,Urine NEG (Negative); Blood,Urine NEG (Negative); Color,Urine Yellow (Yellow); Mucus,Urine 1+ /HPF; Protein,Urine <15 mg/dL mg/dL (Negative)
[2021-06-09 19:57] VITALS: BP 123/70
== END 2021-06-09 20:25 | disposition home or self-care (01) ==
LOC: TRG 13:30 → APU 13:42 → TRG 20:25
PROVIDERS: ATTEND Obstetrics & Gynecology
DX: Z34.92 Encounter for supervision of normal pregnancy, unspecified, second trimester (principal); Z3A.27 27 weeks gestation of pregnancy
CPT/HCPCS: 59025; 81001; 87086